=== PATIENT | female | born 1960 ===

== ENCOUNTER → 2017-09-25 | Outpatient (REF) | payer OTHER | LOC: M LAB REF 11:59 | DX: N39.0 Urinary tract infection, site not specified (principal) ==

== ENCOUNTER → 2019-08-22 | Outpatient (REF) | payer OTHER | LOC: M WUC 15:12 | PROVIDERS: ATTEND Physician Assistant | DX: N39.0 Urinary tract infection, site not specified (principal) ==

== ENCOUNTER → 2019-10-07 | Outpatient (REF) | payer OTHER | LOC: M LAB REF 11:38 | PROVIDERS: ATTEND Physician Assistant | DX: R30.0 Dysuria (principal) ==